=== PATIENT | female | born 2000 | race Caucasian/White ===

== ENCOUNTER 2023-10-06 12:00 | Emergency (ER) | payer OTHER, SELFPAY ==
[2023-10-06] VITALS (20 sets, daily range): BP systolic 106–138; BP diastolic 64–95; PULSE 75–88; RESP 14–22; TEMP 36.8; O2SAT 97–100; BMI 37.8
--- NOTE | 2023-10-06 12:44 | ECG_ITS ---
[facility] Test Date: 2023-10-06 Pat Name: JACQUELINE LO Department: Room: - Gender: Female Internet Marketing Director: : 2000 Requested By: Order Number: [id number] Reading MD: RENETTA WORTHY Measurements Intervals [place] Rate: 81 P: 19 SD: 148 QRS: 62 QRSD: 84 T: 36 QT: 364 QTc: 401 Interpretive Statements 1100 Sinus rhythm 9110 normal ECG No previous ECG available for comparison Electronically Signed On 10-07-2023 6:47:26 EST by RENETTA WORTHY
--- NOTE | 2023-10-06 13:31 | ED.GENADUL1 ---
HPI - General Adult General Chief complaint: Chest Pain Stated complaint: ABDOMEN & CHEST PAIN Time Seen by Provider: 10/06/23 12:10 Source: patient Mode of arrival: walk-in Limitations: no limitations History of Present Illness HPI narrative: Patient is a 23-year-old female who presents to the emergency department for feeling of palpitations and pleuritic chest pain. She states last month she developed similar symptoms where she felt her heart racing and had numbness and tingling in the mouth, hands and feet. She was seen at an outside emergency department and found to have low magnesium which was supplemented in the emergency department only, she has not been taking any home supplementation. She did start taking a multivitamin. She states she followed up with her drilling field professional who discontinued her blood pressure medication but kept her on metoprolol. She states she was diagnosed with a UTI earlier this week and has been taking antibiotics for the last 2 days. She has had no new fevers, chills, cough, congestion. She states she has intermittent anterior chest pain that is worse with deep breathing. She states today she had the same symptoms where her heart rate was elevated and she felt palpitations and tingling. She states she called her drilling field professional office and was instructed to come back to the ER to be seen. She is not concerned for . She states she is nauseous but has had no vomiting and denies abdominal pain. No medications taken prior to arrival today. Related Data Home Medications Medication Instructions Recorded Confirmed fluconazole 150 mg tablet 150 mg PO Q3D 10/06/23 10/06/23 metformin 500 mg tablet 500 mg PO BID 10/06/23 10/06/23 metoprolol succinate 50 mg 50 mg PO DAILY 10/06/23 10/06/23 tablet,extended release 24 hr nitrofurantoin 100 mg PO Q12H 10/06/23 10/06/23 monohydrate/macrocrystals 100 mg capsule sertraline 25 mg tablet 25 mg PO Q24H 10/06/23 10/06/23 tirzepatide 5 mg/0.5 mL 5 mg subcut .weekly 10/06/23 10/06/23 subcutaneous pen injector (Sam) Previous Rx's Medication Instructions Recorded ondansetron 4 mg disintegrating 4 mg PO Q6H PRN nausea and 10/06/23 tablet vomiting #12 tabs Allergies Allergy/AdvReac Type Severity Reaction Status Date / Time amoxicillin [From Augmentin] AdvReac Intermediate Verified 10/06/23 12:07 azithromycin [From Zithromax] AdvReac Intermediate Verified 10/06/23 12:07 clavulanic acid AdvReac Intermediate Verified 10/06/23 12:07 [From Augmentin] Review of Systems ROS Constitutional Denies: fever or chills Ears, nose, mouth, and throat Denies: throat pain or nasal congestion Cardiovascular Reports: chest pain and palpitations Respiratory Denies: shortness of breath or cough Gastrointestinal Reports: nausea; Denies: vomiting or diarrhea Genitourinary Reports: blood in urine Musculoskeletal Denies: back pain Integumentary/Breast Denies: rash Neurological Denies: headache PFSH PFSH Social History Smoking status: Never smoker Exam Narrative Exam Narrative: Gen.: Awake, alert, in no distress Head: Normocephalic, atraumatic ENT: Moist mucous membranes Respiratory: No respiratory distress, lungs clear bilaterally Cardio: Regular rate and rhythm Gastrointestinal: Abdomen is soft, nondistended and nontender to palpation Extremities: Moves extremities equally Psych: Normal mood and affect Neuro: No focal neuro deficit Skin: Warm, dry, intact Constitutional Vital Signs, click to edit/add: Last Vital Signs Temp 98.2 F 10/06/23 12:07 Pulse 88 10/06/23 15:09 Resp 16 10/06/23 15:09 BP 136/74 10/06/23 15:09 Pulse Ox 98 10/06/23 15:09 O2 Del Method Room Air 10/06/23 15:09 Course Vital Signs Vital signs: Vital Signs Temperature 98.2 F 10/06/23 12:07 Pulse Rate 86 10/06/23 12:07 Respiratory Rate 18 10/06/23 12:07 Blood Pressure 138/95 H 10/06/23 12:07 Pulse Oximetry 99 10/06/23 12:07 Oxygen Delivery Method Room Air 10/06/23 12:07 Temperature 98.2 F 10/06/23 12:07 Pulse Rate 88 10/06/23 15:09 Respiratory Rate 16 10/06/23 15:09 Blood Pressure 136/74 10/06/23 15:09 Pulse Oximetry 98 10/06/23 15:09 Oxygen Delivery Method Room Air 10/06/23 15:09 Medical Decision Making MDM Narrative Medical decision making narrative: Patient received IV fluids and Zofran in the ER. Her workup including D-dimer, EKG and troponin with chest x-ray are unremarkable. I discussed the case with her drilling field professional, Faith Ackerman PA-C For [facility] cardiology who requested the patient be placed on metoprolol twice daily instead of daily and follow-up in the office. Patient given education and reassurance on reevaluation by attending physician. Return to the ER if symptoms change or worsen Medical Records Medical records reviewed: Yes I reviewed the patient's medical records Lab Data Lab results reviewed: Yes I reviewed the patient's lab results Labs: Lab Results 10/06/23 10/06/23 Range/Units 13:20 13:35 WBC 8.6 (4.0-11.0) 10^3/uL RBC 4.73 (4.20-5.40) 10^6/uL Hgb 12.6 (12.0-16.0) g/dL Hct 40.6 (36.0-48.0) % MCV 85.8 (81.0-99.0) fL MCH 26.6 L (26.7-34.0) pg MCHC 31.0 (29.9-35.2) g/dL RDW 13.2 (11.0-15.0) % Plt Count 410 (150-450) 10^3/uL MPV 9.9 (9.5-13.5) fL Neut % (Auto) 65.8 (43.0-75.0) % Lymph % (Auto) 24.2 (20.5-60.0) % [place] % (Auto) 7.2 (1.7-12.0) % Eos % (Auto) 1.8 (0.9-7.0) % Baso % (Auto) 0.6 (0.2-2.0) % Neut # (Auto) 5.7 (1.4-6.5) 10^3/uL Lymph # (Auto) 2.1 (1.2-3.8) 10^3/uL [place] # (Auto) 0.6 (0.3-0.8) 10^3/uL Eos # (Auto) 0.2 (0.0-0.7) 10^3/uL Baso # (Auto) 0.1 (0.0-0.1) 10^3/uL Abs Immat Gran (auto) 0.03 (0.00-0.03) 10^3/uL Imm/Tot Granulo (auto) 0.4 (0.0-0.5) % D-Dimer <0.19 (<=0.59) mg/L FEU Sodium 138 (136-145) mmol/L Potassium 4.1 (3.5-5.1) mmol/L Chloride 106 (98-107) mmol/L Carbon Dioxide 28.0 (21.0-32.0) mmol/L Anion Gap 8.1 BUN 7.0 (7.0-18.0) mg/dL Creatinine 0.71 (0.55-1.02) mg/dL Est GFR ( Amer) >60 (>=60) Est GFR (Non-Af Amer) >60 (>=60) BUN/Creatinine Ratio 9.9 Glucose 83 (74-106) mg/dL Calcium 9.2 (8.5-10.1) mg/dL Phosphorus 2.8 (2.6-4.7) mg/dL Magnesium 1.9 (1.8-2.4) mg/dL Total Bilirubin 0.3 (0.2-1.0) mg/dL AST 15 (15-37) U/L ALT 28 (14-59) U/L Alkaline Phosphatase 77 (46-116) U/L Troponin I High Sens <4.0 L (4.0-51.3) pg/mL Total Protein 7.3 (6.4-8.2) g/dL Albumin 3.5 (3.4-5.0) g/dL Globulin 3.8 g/dL Albumin/Globulin Ratio 0.9 TSH 1.243 (0.358-3.740) uIU/mL Urine Color Lt. yellow (YELLOW) Urine Clarity Clear (CLEAR) Urine pH 6.0 (5.0-9.0) Ur Specific [place] 1.010 (1.005-1.025) Urine Protein Negative (NEG/TRACE) mg/dL Urine Glucose (UA) Negative (NEGATIVE) mg/dL Urine Ketones Negative (NEGATIVE) mg/dL Urine Occult Blood Negative (NEGATIVE) Urine Nitrite Negative (NEGATIVE) Urine Bilirubin Negative (NEGATIVE) Urine Urobilinogen 0.2 (0.2-1.0) EU/dL Ur Leukocyte Esterase Negative (NEGATIVE) Urine HCG, Qual Negative (NEGATIVE) Imaging Data Chest x-ray: Attestation: I have reviewed the pertinent imaging results. Radiologist's impression: ITS Impressions Chest X-Ray 10/06/23 14:29 IMPRESSION: No acute cardiopulmonary process Electronically authenticated by: ROSY MORALES Date: 10/06/2023 14:57 ECG Data Attestation: I personally reviewed and interpreted this ECG as follows: (Normal sinus rhythm at a rate of [address] elevation or ectopy. EKG reviewed by attending physician) Discharge Plan Discharge Chief Complaint: Chest Pain Clinical Impression: Palpitations, Atypical chest pain Patient Disposition: Home, Self-Care Time of Disposition Decision: 15:00 Condition: Good Prescriptions / Home Meds: New ondansetron 4 mg tablet,disintegrating 4 mg PO Q6H PRN (Reason: nausea and vomiting) Qty: 12 0RF No Action fluconazole 150 mg tablet 150 mg PO Q3D metformin 500 mg tablet 500 mg PO BID metoprolol succinate 50 mg tablet extended release 24 hr 50 mg PO DAILY nitrofurantoin monohyd/m-cryst 100 mg capsule 100 mg PO Q12H sertraline 25 mg tablet 25 mg PO Q24H Mounjaro 5 mg/0.5 mL pen injector 5 mg SUBCUT .weekly Instructions: Chest Pain (ED), Heart Palpitations (ED) Additional Instructions: Please take your metoprolol twice a day and follow up with your drilling field professional Stand Alone Forms: Portal Instructions Referrals: Physician,Non-Staff, MD [Primary Care Provider] - 1 week Discharge Date/Time: 10/06/23 15:12
[2023-10-06 13:37] LABS: Basophils Absolute Auto 0.1 10^3/uL (0.0-0.1); Basophils Percent Auto 0.6 % (0.2-2.0); Eosinophils Absolute Auto 0.2 10^3/uL (0.0-0.7); Eosinophils Percent Auto 1.8 % (0.9-7.0); Hematocrit 40.6 % (36.0-48.0); Hemoglobin 12.6 g/dL (12.0-16.0); Immature Granulocytes Abs Auto 0.03 10^3/uL (0.00-0.03); Immature Granulocytes Pct Auto 0.4 % (0.0-0.5); Lymphocytes Absolute Auto 2.1 10^3/uL (1.2-3.8); Lymphocytes Percent Auto 24.2 % (20.5-60.0); Mean Corpuscular Hemoglobin 26.6 pg (26.7-34.0); Mean Corpuscular Volume 85.8 fL (81.0-99.0); Mean Platelet Volume 9.9 fL (9.5-13.5); Monocytes Absolute Auto 0.6 10^3/uL (0.3-0.8); Monocytes Percent Auto 7.2 % (1.7-12.0); Neutrophils Absolute Auto 5.7 10^3/uL (1.4-6.5); Neutrophils Percent Auto 65.8 % (43.0-75.0); Platelet Count 410 10^3/uL (150-450); Red Blood Count 4.73 10^6/uL (4.20-5.40); Red Cell Distribution Width 13.2 % (11.0-15.0); White Blood Count 8.6 10^3/uL (4.0-11.0)
[2023-10-06 13:49] LABS: Alanine Aminotransferase 28 U/L (14-59); Albumin Globulin Ratio 0.9; Albumin Level 3.5 g/dL (3.4-5.0); Alkaline Phosphatase 77 U/L (46-116); Anion Gap 8.1; Aspartate Amino Transferase 15 U/L (15-37); BUN Creatinine Ratio 9.9; Bilirubin Total 0.3 mg/dL (0.2-1.0); Calcium 9.2 mg/dL (8.5-10.1); Chloride 106 mmol/L (98-107); Estimated GFR (African America >60 (>=60); Estimated GFR (Non-African Ame >60 (>=60); Globulin 3.8 g/dL; Glucose 83 mg/dL (74-106); Magnesium 1.9 mg/dL (1.8-2.4); Phosphorus 2.8 mg/dL (2.6-4.7); Potassium 4.1 mmol/L (3.5-5.1); Sodium 138 mmol/L (136-145); Total Protein 7.3 g/dL (6.4-8.2)
[2023-10-06] MEDS: 0.9 % SODIUM CHLORIDE 1,000 ML 1000 ML IV (13:49)
[2023-10-06] MEDS: ONDANSETRON PF 4 MG/2 ML VIAL IV (13:51)
[2023-10-06 14:28] LABS: D Dimer <0.19 mg/L FEU (<=0.59)
--- NOTE | 2023-10-06 14:29 | XR_ITS ---
The [address] [address] Patient Name: JACQUELINE LO MRN: [id number] date: 2000 Sex: F Assigned Patient Location: ER Current Patient Location: ER Accession/Order Number: [id number] Exam Date: 10/06/2023 14:35 Report Date: 10/06/2023 14:57 At the request of: RODERICK DURAN Procedure: XR chest 1V EXAMINATION: XR chest 1V HISTORY: Chest pain COMPARISON: 01/08/2014 TECHNIQUE: AP portable erect FINDINGS: LUNGS: No significant pulmonary parenchymal abnormalities. VASCULATURE: No increased pulmonary vasculature. PLEURA: No pneumothorax, effusion, or pleural thickening. CARDIAC: No cardiomegaly or cardiac silhouette abnormality. MEDIASTINUM: No visible mass or adenopathy. BONES: No fracture or visible bone lesion. OTHER: Negative. XR/XR chest 1V IMPRESSION: No acute cardiopulmonary process Electronically authenticated by: ROSY MORALES Date: 10/06/2023 14:57
[2023-10-06 14:44] LABS: Bilirubin Urine NEGATIVE (NEGATIVE); Blood Urine NEGATIVE (NEGATIVE); Clarity Urine CLEAR (CLEAR); Color Urine LT. YELLOW (YELLOW); Glucose Urine UA NEGATIVE (NEGATIVE); Ketones Urine NEGATIVE (NEGATIVE); Leukocyte Esterase Urine NEGATIVE (NEGATIVE); Nitrite Urine NEGATIVE (NEGATIVE); Protein Urine NEGATIVE (NEG/TRACE); Urobilinogen Urine 0.2 EU/dL (0.2-1.0)
[2023-10-06 14:45] LABS: HCG Qualitative Urine* NEGATIVE (NEGATIVE)
[2023-10-06 14:46] LABS: Urine Microscopic Indicated NO
[2023-10-06 14:54] LABS: Thyroid Stimulating Hormone 1.243 uIU/mL (0.358-3.740); Troponin I High Sensitivity <4.0 pg/mL (4.0-51.3)
== END 2023-10-06 15:12 | disposition home or self-care (01) ==
PROVIDERS: Physician Assistant; Emergency Provider Emergency Medicine
DX: R00.2 Palpitations (principal); R07.89 Other chest pain; Z87.440 Personal history of urinary (tract) infections; Z79.899 Other long term (current) drug therapy; Z79.84 Long term (current) use of oral hypoglycemic drugs
CPT/HCPCS: 36415; 71045; 80053; 81003; 83735; 84100; 84443; 84484; 84703; 85025; 85378; 93005; 96374; 99285; J2405